=== PATIENT | female | born 1960 | race Two or more races ===

== ENCOUNTER 2022-03-22 06:09 | Day surgery (SDC) | payer OTHER, MEDICAID ==
[2022-03-15 12:39] LABS: Basophils # (auto) 0 10 ^3/uL (0-0.2); Basophils % (auto) 0.4 % (0.0-2.0); Eosinophils # (auto) 0.1 10 ^3/uL (0-0.8); Eosinophils % (auto) 2.6 % (0.0-7.0); Hematocrit 38.5 % (36.0-46.0); Hemoglobin 12.7 g/dL (12.2-16.2); Lymphocytes # (auto) 2.2 10 ^3/uL (0.4-5.4); Lymphocytes % (auto) 46.2 % (10.0-50.0); Mean Corpuscular Hemoglobin 31.6 pg (28.0-32.0); Mean Corpuscular Volume 95.9 fL (80.0-100.0); Monocytes # (auto) 0.4 10 ^3/uL (0-1.3); Monocytes % (auto) 7.6 % (0.0-12.0); Neutrophils % (auto) 43.2 % (37.0-80.0); Red Blood Cells 4.02 10^6/uL (4.0-5.20); Red Cell Distribution Width 13.7 % (11.8-14.3); White Blood Cell 4.7 10^3/uL (4.4-10.8)
[2022-03-15 13:01] LABS: Urine Bacteria NONE SEEN /hpf (None Seen); Urine Blood Negative /uL (Negative); Urine WBC 6 /hpf (0 - 5)
[2022-03-15 13:14] LABS: INR 1.03 (0.9-1.15); Partial Thromboplastin Time 32.1 sec (24.6-33.4)
[2022-03-15 13:27] LABS: Albumin 3.8 g/dL (3.4-5.0); Calcium 9.1 mg/dL (8.5-10.1); Potassium 3.6 mmol/L (3.5-5.1)
[2022-03-15 13:30] LABS: Bilirubin, Total 1.1 mg/dL (0.2-1.0); Total Protein 8.6 g/dL (6.4-8.2)
[~2022-03-22] VITALS: Ht 167.6 cm; Wt 97.1 kg
[~2022-03-22 06:09] MED LIST: AMIT50TA5 PO; BUPR1TAB11 PO; LOSA-39 PO; PREG50CA PO
[2022-03-22] MEDS ORDERED: LIDOCAINE 1%HCL (LOCAL ANESTH) 10 ML MDV ONE (06:51)
[2022-03-22] MEDS ORDERED: BUPIVACAINE HCL 0.25% P/F 10 ML VIAL ONE (06:51)
[2022-03-22] MEDS ORDERED: fentaNYL CITRATE 100 MCG/2 ML VL ONE ×2 (07:33→08:35)
[2022-03-22] MEDS ORDERED: MIDAZOLAM HCL 2MG/2ML 2ml VIAL (1mg/ml) ONE (07:33)
[2022-03-22] MEDS ORDERED: LIDOCAINE 2% (LOCAL ANESTH.) PF 5ml SDV ONE (07:40)
[2022-03-22] MEDS ORDERED: PROPOFOL 10 MG/ML 20 ML IV ONE ×2 (07:40→09:20)
[2022-03-22] MEDS ORDERED: ONDANSETRON HCL 4 MG/2 ML VIAL ONE (07:40)
[2022-03-22] MEDS ORDERED: CLINDAMYCIN 600MG IV 50 ML IV ONE (07:42)
[2022-03-22] MEDS ORDERED: KETAMINE HCL 10 ML ONE (08:22)
[2022-03-22] MEDS ORDERED: ONDANSETRON HCL 4 MG/2 ML VIAL IV PRN (09:00)
[2022-03-22] MEDS ORDERED: CLIN300C8 PO (09:38)
[2022-03-22] MEDS ORDERED: HYDR-4902 PO (09:38)
[2022-03-22] MEDS: HYDROmorphone HCL 2 MG/ML VL/or syr IV PRN ×2 (09:40→10:00)
[2022-03-22 10:15] VITALS: BP 154/80
== END 2022-03-22 10:40 | disposition home or self-care (01) ==
LOC: SUR 06:09
PROVIDERS: ATTEND Student in an Organized Health Care Education/Training Program
DX: M20.11 Hallux valgus (acquired), right foot (principal); M20.41 Other hammer toe(s) (acquired), right foot; I10 Essential (primary) hypertension; Z79.899 Other long term (current) drug therapy; Z98.890 Other specified postprocedural states; Z91.040 Latex allergy status; Z20.822 Contact with and (suspected) exposure to COVID-19
CPT/HCPCS: 28232; 28296; 36415; 73620; 73630; 80053; 81001; 85025; 85610; 85730; C1713; J1170; J2001; J2250; J2405; J2704; J3010; J3490; U0003; 76000